=== PATIENT | male | born 1950 | race Caucasian/White ===

== ENCOUNTER → 2021-01-10 | Outpatient (CLI) | payer OTHER ==
[~2021-01-10] MED LIST: PERCOCET 5/325 T1 EA PO
== END ==
LOC: RAD 08:21
DX: R06.02 Shortness of breath (principal); R00.2 Palpitations; I11.0 Hypertensive heart disease with heart failure; I50.9 Heart failure, unspecified; E78.5 Hyperlipidemia, unspecified; I25.5 Ischemic cardiomyopathy; I48.91 Unspecified atrial fibrillation; J98.11 Atelectasis
CPT/HCPCS: 71046

== ENCOUNTER → 2021-03-10 | Outpatient (CLI) | payer OTHER | LOC: HEART 5 07:32 | DX: I25.118 Atherosclerotic heart disease of native coronary artery with other forms of angina pectoris (principal) | CPT/HCPCS: 78452; A9502; J2785 ==

== ENCOUNTER → 2021-04-20 | Outpatient (CLI) | payer OTHER | LOC: KOH-I 09:01 | DX: R05.9 Cough, unspecified (principal) | CPT/HCPCS: 71046 ==

== ENCOUNTER → 2021-06-27 | Outpatient (CLI) | payer OTHER | LOC: KOH-I 13:19 | DX: R06.2 Wheezing (principal) | CPT/HCPCS: 71046 ==